=== PATIENT | female | born 1950 | race Caucasian/White ===

== ENCOUNTER → 2016-08-21 | Outpatient (CLI) | payer BC ==
[~2016-08-21] MED LIST: B-COTAB53 PO; CHOL100010 PO; DICL1GEL28 TOP; HYDR12.55 PO; MAGN500C PO; OMEG100046 PO; OYST500T47 PO; PRVC10 PO; TRAV0.00 OP
[2016-08-21 12:28] LABS: URINE APPEARANCE CLEAR (CLEAR); URINE BILIRUBIN NEG (NEG); URINE COLOR YELLOW; URINE NITRITE NEG (NEG); URINE PH 7.5 (4.5-7.5); UROBILINOGEN NEG (NEG)
[2016-08-21 12:29] LABS: MANUAL MICROSCOPIC REQUIRED? NO; REVIEW REQ? NO
[2016-08-21 12:35] LABS: ALT/SGPT 21 U/L (12-78); BLOOD UREA NITROGEN 14 mg/dl (7-18); CALCIUM 9.4 mg/dl (8.5-10.1); CARBON DIOXIDE 31 mmol/L (21-32); CHLORIDE 99 mmol/L (98-107); CHOLESTEROL 174 mg/dl (0-200); CREATININE 0.87 mg/dl (0.60-1.20); GLUCOSE 91 mg/dl (70-99); POTASSIUM 3.9 mmol/L (3.5-5.1); SODIUM 139 mmol/L (136-145)
[2016-08-21 12:38] LABS: ALB/GLOB RATIO 1.2 (0.9-2); ALKALINE PHOSPHATASE 63 U/L (45-117); AST/SGOT 17 U/L (15-37); CHOLESTEROL/HDL RATIO 2.4; HDL CHOLESTEROL 73 mg/dl; LDL CHOLESTEROL CALCULATED 82 mg/dl; TRIGLYCERIDES 96 mg/dl (0-150); VERY LOW DENSITY LIPOPROT CALC 19 mg/dl
== END | disposition home or self-care (01) ==
LOC: C.LABBFT 07:50
PROVIDERS: ATTEND Nurse Practitioner
DX: R31.29 Other microscopic hematuria (principal); E55.9 Vitamin D deficiency, unspecified; E78.5 Hyperlipidemia, unspecified

== ENCOUNTER → 2016-08-23 | Outpatient (CLI) | payer BC ==
--- NOTE | 2016-08-24 07:31 | MAMMOGRAPHY REPORT ---
BILATERAL DIGITAL SCREENING MAMMOGRAM TOMOSYNTHESIS WITH CAD: 08/23/2016 CLINICAL HISTORY: Routine screening. Patient has no complaints. TECHNIQUE: Breast tomosynthesis in addition to standard 2D mammography was performed. Current study was also evaluated with a Computer Aided Detection (CAD) system. COMPARISON: Comparison is made to exams dated: 03/07/2016 mammogram, 09/07/2015 aspiration, 08/31/2015 ultrasound, 08/31/2015 mammogram, 08/22/2015 mammogram, and 08/20/2014 mammogram - [facility]. BREAST COMPOSITION: There are scattered areas of fibroglandular density in both breasts. FINDINGS: No suspicious masses, calcifications, or areas of architectural distortion are noted in e ither breast. There has been no significant interval change compared to prior exams. Scattered bilat eral benign-appearing calcifications are not significantly changed. IMPRESSION: ACR BI-RADS CATEGORY 2: BENIGN There is no mammographic evidence of malignancy. A 1 year screening mammogram is recommended. The p atient will receive written notification of the results. Approximately 10% of breast cancers are not detected with mammography. A negative mammographic repor t should not delay biopsy if a clinically suggestive mass is present. Sloane Reis M.D. /:08/23/2016 13:43:57 Global Safety Officer: Sonja Hickman, [facility] letter sent: Normal 1/2 BI-RADS Code: ACR BI-RADS Category 2: Benign
== END | disposition home or self-care (01) ==
LOC: C.MAMM 09:06
PROVIDERS: ATTEND Nurse Practitioner
DX: Z12.31 Encounter for screening mammogram for malignant neoplasm of breast (principal)

== ENCOUNTER → 2016-09-13 | Outpatient (CLI) | payer BC | END | disposition home or self-care (01) | LOC: C.MAMM 14:15 | PROVIDERS: ATTEND Nurse Practitioner | DX: M85.851 Other specified disorders of bone density and structure, right thigh (principal); M85.852 Other specified disorders of bone density and structure, left thigh ==

== ENCOUNTER → 2016-10-24 | Outpatient (CLI) | payer BC ==
[2016-10-24 17:31] LABS: BLOOD UREA NITROGEN 22 mg/dl (7-18); CREATININE 0.94 mg/dl (0.60-1.20)
== END | disposition home or self-care (01) ==
LOC: C.LABBFT 15:13
PROVIDERS: ATTEND Nurse Practitioner
DX: R14.0 Abdominal distension (gaseous) (principal)

== ENCOUNTER → 2016-11-01 | Outpatient (CLI) | payer BC ==
--- NOTE | 2016-11-01 13:09 | DIAGNOSTIC IMAGING REPORT ---
ABDOMEN AND PELVIS CT WITH IV AND ORAL CONTRAST CT DOSE: 711.08 mGycm HISTORY: Left lower quadrant abdominal pain. TECHNIQUE: Multiaxial CT images of the abdomen and pelvis were performed following the use of intravenous and oral contrast. COMPARISON STUDY: Abdomen and pelvis CT 01/08/2014. FINDINGS: The lung bases are clear. Small hiatus hernia. The liver, spleen, adrenal glands, and kidneys are unremarkable. Bilateral extrarenal pelvises. No hydronephrosis. No retroperitoneal lymphadenopathy. Cholecystectomy. The uterus is surgically absent. Normal appendix. No bowel wall thickening or obstruction. IMPRESSION: 1. No bowel wall thickening or obstruction. 2. Normal appendix. 3. Cholecystectomy. 4. Small hiatus hernia. Electronically signed by: Evan Caceres M.D. 11/01/2016 1:07 PM Dictated Date/Time: 11/01/2016 1:00 PM
== END | disposition home or self-care (01) ==
LOC: C.CTS 12:13
PROVIDERS: ATTEND Nurse Practitioner
DX: R14.0 Abdominal distension (gaseous) (principal); K44.9 Diaphragmatic hernia without obstruction or gangrene

== ENCOUNTER → 2017-03-04 | Outpatient (CLI) | payer BC ==
[2017-03-04 12:23] LABS: ALT/SGPT 22 U/L (12-78); AST/SGOT 16 U/L (15-37); BLOOD UREA NITROGEN 13 mg/dl (7-18); BUN/CREATININE RATIO 14.9 (10-20); CALCIUM 9.6 mg/dl (8.5-10.1); CARBON DIOXIDE 29 mmol/L (21-32); CHLORIDE 101 mmol/L (98-107); CHOLESTEROL 205 mg/dl (0-200); CREATININE 0.86 mg/dl (0.60-1.20); GLUCOSE 90 mg/dl (70-99); POTASSIUM 4.1 mmol/L (3.5-5.1); SODIUM 137 mmol/L (136-145); TRIGLYCERIDES 207 mg/dl (0-150); VERY LOW DENSITY LIPOPROT CALC 41 mg/dl
[2017-03-04 12:33] LABS: ALB/GLOB RATIO 1.1 (0.9-2); ALKALINE PHOSPHATASE 70 U/L (45-117); CHOLESTEROL/HDL RATIO 3.6; HDL CHOLESTEROL 57 mg/dl; LDL CHOLESTEROL CALCULATED 107 mg/dl
== END | disposition home or self-care (01) ==
LOC: C.LABBFT 09:24
PROVIDERS: ATTEND Nurse Practitioner
DX: I10 Essential (primary) hypertension (principal); E66.3 Overweight; E78.5 Hyperlipidemia, unspecified

== ENCOUNTER → 2017-08-26 | Outpatient (CLI) | payer BC ==
--- NOTE | 2017-08-27 13:28 | MAMMOGRAPHY REPORT ---
BILATERAL DIGITAL SCREENING MAMMOGRAM TOMOSYNTHESIS WITH CAD: 08/26/2017 CLINICAL HISTORY: Routine screening. TECHNIQUE: Breast tomosynthesis in addition to standard 2D mammography was performed. Current study was also evaluated with a Computer Aided Detection (CAD) system. COMPARISON: Comparison is made to exams dated: 08/23/2016 mammogram, 08/31/2015 mammogram, 08/22/2015 jeanne mogram, 08/20/2014 mammogram, 08/19/2013 mammogram, and 08/18/2012 mammogram - [facility]. BREAST COMPOSITION: There are scattered areas of fibroglandular density in both breasts. FINDINGS: There is a newly visualized 4 mm focal asymmetry in the 12:00 middle one third of the righ t breast, for which additional spot compression tomosynthesis views and possible ultrasound are recom mended. There are a few scattered benign round and rim calcifications bilaterally. No other suspicious mass, architectural distortion or cluster of microcalcifications is seen. IMPRESSION: ACR BI-RADS CATEGORY 0: INCOMPLETE EVALUATION: NEED ADDITIONAL IMAGING EVALUATION The newly visualized 4 mm focal asymmetry in the right 12:00 breast needs additional evaluation. The patient will be called to schedule an appointment. Approximately 10% of breast cancers are not detected with mammography. A negative mammographic report should not delay biopsy if a clinically suggestive mass is present. Maryann Acevedo M.D. ay/:08/26/2017 16:32:59 Flume Tender: Imtiaz FLORES)(Tiffanie), [facility] letter sent: Addl Imaging 0 BI-RADS Code: ACR BI-RADS Category 0: Incomplete Evaluation: Need Additional Imaging Evaluation
== END | disposition home or self-care (01) ==
LOC: C.MAMM 09:58
PROVIDERS: ATTEND Nurse Practitioner
DX: Z12.31 Encounter for screening mammogram for malignant neoplasm of breast (principal); N64.89 Other specified disorders of breast

== ENCOUNTER → 2017-09-05 | Outpatient (CLI) | payer BC ==
--- NOTE | 2017-09-06 14:59 | MAMMOGRAPHY REPORT ---
UNILATERAL RIGHT DIGITAL DIAGNOSTIC MAMMOGRAM TOMOSYNTHESIS AND TARGETED RIGHT ULTRASOUND: 09/05/2017 CLINICAL HISTORY: Callback from screening mammogram for right breast asymmetry. TECHNIQUE: Breast tomosynthesis in addition to standard 2D mammography was performed. Spot compress ion right CC and MLO 2-D and tomosynthesis images and full right CC and MLO tomosynthesis images were obtained. COMPARISON: Comparison is made to exams dated: 08/26/2017 mammogram, 08/23/2016 mammogram, 03/07/2016 jeanne mogram, 09/07/2015 aspiration, 09/07/2015 mammogram, and 08/31/2015 ultrasound - [facility]. BREAST COMPOSITION: There are scattered areas of fibroglandular density in the right breast. FINDINGS: Spot compression views demonstrate a round low-density 4 mm mass within the right superior breast at approximately 12 to 12:30, only well-seen on the tomosynthesis images. Targeted ultrasound was performed of the right 12 to 1:00 breast in the region of the mammographic ma ss. In the right breast at 12:30, 6 cm from the nipple, there is a superficially located subdermal m ixed echogenicity mass which consists of hyperechoic tissue and a central isoechoic portion. The hira tral isoechoic portion measures 3 mm and the total extent of the finding measures 5 x 3 x 6 mm. This has the sonographic appearance of possible fat necrosis versus a normal fat lobule. On questioning, the patient denies any known trauma to the region. In the right breast at 12:00, 4 cm from the nipp le, there is an oval circumscribed anechoic mass with a thin internal septation which measures 3 x 2 mm consistent with a small cyst. A few other small cysts were seen during the exam, including an ane choic benign simple cyst measuring 3 mm in the right 1:00 periareolar breast. No suspicious solid ma sses were seen on ultrasound. A single BB was placed on the skin at the site of the 12:30 mass and a double BB was placed at the site of the right 12:00 breast mass, and repeat right CC and MLO views we re obtained. Neither BBs clearly align with the mammographic finding. However, the mammographic fin ding has benign mammographic features and is probably benign and likely represents a small cyst. IMPRESSION: ACR-BI-RADS CATEGORY 3: PROBABLY BENIGN, TARGETED ULTRASOUND ACR-BI-RADS CATEGORY 3: PRO BABLY BENIGN Persistent small 4 mm benign-appearing mammographic mass within the right 12 to 12:30 breast, without a clear sonographic correlate evident. A benign 3 mm cyst is seen within the right 12:00 breast on ultrasound, and a superficial mixed echogenicity 6 mm mass is seen within the right 12 to 12:30 breas t on ultrasound which is probably benign and may represent a normal fat lobule versus fat necrosis; t hese findings do not clearly correspond with the mammographic mass. Overall findings are probably be nign and recommend follow-up diagnostic tomosynthesis mammograms and ultrasound of the right breast i n 3 months to reevaluate the mammographic and sonographic findings. The patient has been verbally notified of the results. Approximately 10% of breast cancers are not detected with mammography. A negative mammographic report should not delay biopsy if a clinically suggestive mass is present. Sloane Reis M.D. ah/:09/05/2017 15:38:39 Pump Servicer Helper: Sonja Hickman, [facility] letter sent: Follow Up Recommended 3 BI-RADS Code: ACR-BI-RADS Category 3: Probably Benign Ultrasound BI-RADS: ACR-BI-RADS Category 3: Pr obably Benign
== END | disposition home or self-care (01) ==
LOC: C.MAMM 13:28
PROVIDERS: ATTEND Nurse Practitioner
DX: N63.10 Unspecified lump in the right breast, unspecified quadrant (principal); N60.01 Solitary cyst of right breast

== ENCOUNTER → 2017-09-11 | Outpatient (CLI) | payer BC ==
[2017-09-11 12:54] LABS: HEMATOCRIT 43.6 % (37-47); HEMOGLOBIN 14.8 g/dL (12.0-16.0); MEAN CELL VOLUME 85.8 fL (80-100); MEAN CORPUSCULAR HEMOGLOBIN 29.1 pg (25-34); MEAN CORPUSCULAR HGB CONC 33.9 g/dl (32-36); MEAN PLATELET VOLUME 9.4 fL (7.4-10.4); PLATELET COUNT 324 K/uL (130-400); WHITE BLOOD COUNT 5.92 K/uL (4.8-10.8)
[2017-09-11 13:25] LABS: ALBUMIN 4.2 gm/dl (3.4-5.0); ALT/SGPT 19 U/L (12-78); BLOOD UREA NITROGEN 17 mg/dl (7-18); CALCIUM 9.4 mg/dl (8.5-10.1); CARBON DIOXIDE 29 mmol/L (21-32); CREATININE 0.86 mg/dl (0.60-1.20); GLUCOSE 91 mg/dl (70-99); POTASSIUM 3.7 mmol/L (3.5-5.1); SODIUM 136 mmol/L (136-145)
[2017-09-11 13:28] LABS: ALKALINE PHOSPHATASE 63 U/L (45-117); AST/SGOT 14 U/L (15-37); CHOLESTEROL 189 mg/dl (0-200); LDL CHOLESTEROL CALCULATED 104 mg/dl; TOTAL PROTEIN 7.5 gm/dl (6.4-8.2)
== END | disposition home or self-care (01) ==
LOC: C.LABBFT 07:55
PROVIDERS: ATTEND Nurse Practitioner
DX: E78.5 Hyperlipidemia, unspecified (principal); E55.9 Vitamin D deficiency, unspecified; I10 Essential (primary) hypertension

== ENCOUNTER 2018-12-26 05:04 | Inpatient (IN) ==
--- NOTE | 2018-11-18 16:22 | PAT Medication Instructions ---
Medication Instructions Date of Service November 18, 2018 Home Medications ascorbic acid (vitamin C) [Vitamin 500 mg PO QAM bimatoprost [Lumigan] 1 drp OPB PM brimonidine [Alphagan P] 1 drp OPR BIDM cholecalciferol (vitamin D3) 1,000 unit PO QPM cyclosporine [Restasis] 1 drp OPHTHALMIC (EYE) Q12H diclofenac sodium [Voltaren] 4 g TOPICAL QID PRN magnesium 250 mg PO QAM omega 8-qwj-lsw-fish oil [Fish Oil] 1 cap PO QAM pravastatin 10 mg PO QAM valsartan-hydrochlorothiazide 1 tab PO QAM STOP taking 2 weeks before surgery (or as soon as possible if surgery is within 2 weeks) omega 3-txs-stu-fish oil [Fish Oil] 1 cap PO QAM STOP taking 24 hours before surgery diclofenac sodium [Voltaren] 4 g TOPICAL QID PRN DO NOT take the morning of surgery ascorbic acid (vitamin C) [Vitamin 500 mg PO QAM magnesium 250 mg PO QAM valsartan-hydrochlorothiazide 1 tab PO QAM Take morning of surgery With a small sip of water, OTHERWISE NOTHING TO EAT OR DRINK AFTER MIDNIGHT: brimonidine [Alphagan P] 1 drp OPR BIDM cyclosporine [Restasis] 1 drp OPHTHALMIC (EYE) Q12H pravastatin 10 mg PO QAM Take evening before surgery bimatoprost [Lumigan] 1 drp OPB PM brimonidine [Alphagan P] 1 drp OPR BIDM cholecalciferol (vitamin D3) 1,000 unit PO QPM cyclosporine [Restasis] 1 drp OPHTHALMIC (EYE) Q12H Other Notes If you have any questions please call us at [phone] or [phone] or [phone] or [phone]
--- NOTE | 2018-11-19 10:58 | Anesthesiology Consultation ---
Date of Service November 19, 2018 Assessment & Plan (1) Encounter for pre-operative examination: Chart Review Chart Review: Acceptable Risk for Surgery and Patient seen in Pre Admission Testing Consults Requested none Teaching & Discussion Pre-Anesthesia Teaching/Discussion Notes: Instructed NPO after midnight before surgery, except medications with 15 cc of water. Medication instructions provided according to the PAT guidelines. History Surgery Operation Date: 12/26/18 07:00 Proposed Procedures p Right Total Knee Arthroplasty - Tonio Dockery MD Height/Weight Height: 5 ft 1 in Weight: 67.4 kg Allergies Allergy/AdvReac Type Severity Reaction Status Date / Time tramadol Allergy NAUSEA AND Verified 11/13/18 10:39 VOMITING atenolol AdvReac Unknown NERVOUSNESS, Verified 11/13/18 10:39 JITTERY codeine AdvReac Unknown N/V AND Verified 11/13/18 10:39 DIZZINESS Medications Home Medications Medication Instructions Recorded Confirmed Last Taken ascorbic acid (vitamin C) [Vitamin 500 mg PO QAM 11/13/18 11/13/18 Unknown C] bimatoprost [Lumigan] 1 drp OPB PM 11/13/18 11/13/18 Unknown brimonidine [Alphagan P] 1 drp OPR BIDM 11/13/18 11/13/18 Unknown cholecalciferol (vitamin D3) 1,000 unit PO QPM 11/13/18 11/13/18 Unknown [Vitamin D3] cyclosporine [Restasis] 1 drp OPHTHALMIC (EYE) Q12H 11/13/18 11/13/18 Unknown diclofenac sodium [Voltaren] 4 g TOPICAL QID PRN 11/13/18 11/13/18 Unknown magnesium 250 mg PO QAM 11/13/18 11/13/18 Unknown omega 8-wcw-hxj-fish oil [Fish Oil] 1 cap PO QAM 11/13/18 11/13/18 Unknown pravastatin 10 mg PO QAM 11/13/18 11/13/18 Unknown valsartan-hydrochlorothiazide 1 tab PO QAM 11/13/18 11/13/18 Unknown Past Medical History Medical History Hyperlipidemia Hypertension Mitral valve disorder h/o mitral valve regurgitation - improved Ocular hypertension, bilateral RIGHT EYE WORSE Osteoarthritis Osteopenia Exercise / Class Metabolic Activity II 4-5 Yardwork/Stairs/Walk up hill (Strength training 3 days per week. Usually very active. Able to climb FOS, although becoming more difficult with FOS. Denies CP or SOB. ) Past Family History Family History Father Family history of diabetes mellitus Grandmother (Maternal) Family history of diabetes mellitus Past Surgical History Surgical History History of partial hysterectomy UTERUS AND OVARY Hx of bilateral cataract extraction SINCE SURGERY HAS MACULAR WRINKLE LEFT EYE Hx of section Hx of cholecystectomy Hx of hysterectomy TOTAL 3 MO AFTER PARTIAL Past Anesthesia History No Hx of Anesthesia Complications and No Family Hx of Anesthesia Complications History of PONV Adult History of PONV (18 and older): No family history of PONV. No Hx of PONV and Hx of Motion Sickness Social History Smoking Status: Never smoker Do You Dip or Chew Tobacco: No Hx Alcohol Use: No Hx Substance Use: No Review of Systems Patient denies chest pain, shortness of breath, dyspnea on exertion, reflux, cough, wheezing, palpitations. +Joint Pain (Right Knee, Low Back, Right Hip, right thumb) Physical Exam Vital Signs BP: 138/81 P: 70 R: 18 T: 97.9 SPO2: 98% on RA ENMT Thyromental Distance: < 3.5 Finger Breadths (3) Mallampati Class: II Neck normal visual inspection; neck extension not limited Respiratory normal respiratory effort Auscultation: lungs clear to auscultation bilaterally Cardiovascular Rate/Rhythm: regular rate and regular rhythm Heart Sounds: no murmur Vessels: no carotid bruit Neurologic moves all extremities Psychiatric Orientation: alert and oriented x 3 Testing Electrocardiogram Date: 11/19/18 Findings: + NSR @ (62) and + no change from (01/25/03) Chest X-Ray Date: 11/19/18 Findings: + NAD FINDINGS: PA and lateral chest radiographs are obtained. No prior studies are available for comparison at the time of dictation. The cardiomediastinal silhouette is unremarkable. The lungs and pleural spaces are clear. There is no pneumothorax. The bony thorax appears intact. Cholecystectomy clips are seen in the right upper quadrant. IMPRESSION: No active disease in the chest. Echocardiogram Date: 04/04/18 EF: >70% RWMA: + none Other Findings: + diastolic dysfunction (Type I); no LVH Valvular Disease: + no significant valvular disease Normal left ventricular size with hyperdynamic systolic function. Compared to prior study on 09/02/13, mitral regurgitation now appears trace. Laboratory Results 11/19/18 11:19 11/19/18: Blood Type O Positive 11/19/18: Antibody Screen NEGATIVE 11/19/18: PT 10.3 Seconds (9.0-12.0) 11/19/18: INR 1.0 (0.9-1.1) 11/19/18: APTT 28.5 Seconds (21.0-31.0) 11/19/18:
[2018-11-19 11:39] LABS: Basophils # (auto) 0.02 K/uL (0-0.2); Basophils % (auto) 0.3 %; Eosinophils # (auto) 0.04 K/uL (0-0.5); Eosinophils % (auto) 0.6 %; Hematocrit (blood only) 43.6 % (37-47); Hemoglobin 15.5 g/dL (12.0-16.0); Immature Granulocytes # (auto) 0.02 K/uL (0.00-0.02); Immature Granulocytes % (auto) 0.3 %; Lymphocytes # (auto) 2.79 K/uL (1.2-3.4); Lymphocytes % (auto) 38.6 %; Mean Corpuscular Hgb Conc 35.6 g/dL (32-36); Mean Corpuscular Volume 85.5 fL (80-100); Mean Platelet Volume 8.7 fL (7.4-10.4); Monocytes # (auto) 0.68 K/uL (0.11-0.59); Monocytes % (auto) 9.4 %; Neutrophils # (auto) 3.67 K/uL (1.4-6.5); Neutrophils % (auto) 50.8 %; Platelet Count 346 K/uL (130-400); RDW Coefficient of Variation 12.4 % (11.5-14.5); RDW Standard Deviation 38.8 fL (36.4-46.3); White Blood Count 7.22 K/uL (4.8-10.8)
[2018-11-19 12:09] LABS: Partial Thromboplastin Ratio 1.1; Partial Thromboplastin Time 28.5 Seconds (21.0-31.0); Prothrombin Time 10.3 Seconds (9.0-12.0)
--- NOTE | 2018-11-19 12:29 | XRay Report ---
TWO VIEW CHEST CLINICAL HISTORY: Preoperative examination. FINDINGS: PA and lateral chest radiographs are obtained. No prior studies are available for compariso n at the time of dictation. The cardiomediastinal silhouette is unremarkable. The lungs and pleural spaces are clear. There is no pneumothorax. The bony thorax appears intact. Cholecystectomy clips ar e seen in the right upper quadrant. IMPRESSION: No active disease in the chest. Electronically signed by: Warren Chawla M.D. 11/19/2018 12:27 PM
[2018-11-19 14:15] LABS: BUN Creatinine Ratio 19.1 (10-20); Calcium 10.1 mg/dl (8.5-10.1); Creatinine Clr Calc Pharmacy 49.4 ml/min; Est GFR (African American) 72.2; Est GFR (Non-African American) 62.3; Potassium 4.6 mmol/L (3.5-5.1)
--- NOTE | 2018-12-19 08:12 | History and Physical Report ---
DATE OF ADMISSION: 12/26/2018 CHIEF COMPLAINT: Right knee pain. HISTORY OF PRESENT ILLNESS: This is a 68-year-old female from [place], who presents for surgical treatment of her right knee. She has several-year history of increasing right knee pain and discomfort. She describes it has gotten worse over time. She has been treated by Dr. Negro in the past with a course of therapy as well as multiple injections as well as topical Voltaren gel. This became less successful over time. She has global pain in the knee. The more she walks, the more it hurts. It swells up. It makes noises. She has increased pain going up and down steps. She would like to proceed with surgical treatment. PAST MEDICAL HISTORY: 1. Mitral valve prolapse. 2. Lumbar spondylosis/sciatica. PAST SURGICAL HISTORY: Previous surgeries include: 1. Cataract surgery. 2. Hysterectomy. 3. . ALLERGIES: ATENOLOL, LISINOPRIL, CODEINE, TRAMADOL, WHICH CAUSES NAUSEA. CURRENT MEDICINES: Include: 1. Pravastatin 10 mg. 2. Vitamin B complex. 3. [place]-3. 4. Vitamin D. 5. Diclofenac topical gel 4 times a day. 6. Magnesium 250 mg a day 7. Valsartan/hydrochlorothiazide 80/12.5 mg once a day. 8. Alphagan ophthalmic drops. 9. Lumigan ophthalmic drops. 10. Restasis ophthalmic drops. SOCIAL HISTORY: A 68-year-old female. She is from [place]. She is . FAMILY HISTORY: Noncontributory. REVIEW OF HISTORY: Negative for diabetes, neurologic problems, vascular problems or bleeding disorders. No chest pain or shortness of breath. No history of DVT or PE. No known bleeding problems. PHYSICAL EXAMINATION: GENERAL: Reveals a pleasant, middle-aged female. Looks a little younger than her stated age. HEENT: Benign. NECK: Supple. No lymphadenopathy. LUNGS: Clear to auscultation. HEART: Has a regular rate and rhythm. ABDOMEN: Soft, nontender, nondistended. EXTREMITIES: Grossly neurovascularly intact except as follows: Examination of the right knee reveals the patient walks with a slight bit of a limp. She has got valgus alignment to her knee. Her valgus deformity is increased with weightbearing. Moderate soft tissue envelope. Small knee effusion. Range of motion is 5-10 degrees, short of full extension to 120 degrees of flexion. There is no instability. No pain with hip motion. X-RAYS: X-rays of the right knee reviewed. Shows advanced lateral compartment DJD. She has complete loss of her lateral joint space on the 40-degree flexion films. She has osteophytes of the lateral femoral condyle and lateral tibial plateau. Mild patellofemoral arthritis. ASSESSMENT: A 68-year-old female with a several-year history of increasing right knee pain, discomfort, unresponsive to conservative care. She would like to proceed with knee replacement. PLAN: We are going to take her to the operating room and do a right total knee replacement. The risks and benefits of this procedure were explained to the patient including but not limited to DVT, PE, , infection, neurological injury, vascular injury, bleeding problem, pain, limited range of motion, stiffness, failure to relieve her symptoms, incomplete relief of symptoms, need for further surgery in future, fracture, leg length inequality, nerve palsy, etc. The patient understands and desires to proceed. Informed consent was obtained. Pain control may be a little bit of an issue as she gets a lot of nausea with codeine and tramadol. She says she has done okay with morphine in the past. We will likely use Dilaudid in the perioperative period and some Zofran as needed. As far as discharge plans, she is planning to be discharged home using [facility] home health program.
[2018-12-26] MEDS ORDERED: GABAPENTIN 300 MG PO SCH (06:00)
[2018-12-26] MEDS ORDERED: METOCLOPRAMIDE HCL 10 MG TABLET PO SCH (06:00)
[2018-12-26] MEDS ORDERED: CEFAZOLIN 2000MG 2,000 MG/15 ML SYR IV SCH (06:00)
[2018-12-26] MEDS ORDERED: FAMOTIDINE 20 MG TAB PO SCH (06:00)
[2018-12-26] MEDS ORDERED: ROPIVACAINE 0.5% HCL/PF 150 MG, BUPIVACAINE 0.5% MPF 30 ML, EPINEPHrine 30MG/30ML (OR U... INFIL SCH (06:00)
[2018-12-26] MEDS ORDERED: ACETAMINOPHEN 500 MG TAB PO SCH (06:00)
[2018-12-26] MEDS ORDERED: LR 500ML BOLUS, THEN 15ML/HR IV SCH (06:00)
[2018-12-26] MEDS ORDERED: BUPIVACAINE LIPOSOME/PF 266 MG, BUPIVACAINE/EPINEPHRINE 50 ML, SODIUM CHLORIDE 0.9% 30 ... INFIL SCH (06:00)
[2018-12-26] MEDS ORDERED: LR 60ML/HR IV SCH (06:00)
[2018-12-26] MEDS ORDERED: MIDAZOLAM HCL 1 MG/ML 2ML VIAL ONE (06:27)
[2018-12-26] MEDS ORDERED: fentaNYL citrate 100 MCG/2 ML VIAL ONE (06:27)
[2018-12-26] MEDS ORDERED: TRANEXAMIC ACID 1,000 MG **IV Intra-op IV SCH (06:30)
[2018-12-26] MEDS ORDERED: EPINEPHrine INJ 1 MG/ML AMP ONE ×2 (06:32→06:43)
[2018-12-26] MEDS ORDERED: ROPIVACAINE 0.5% 5 MG/ML 30 ML VIAL ONE (06:32)
[2018-12-26] MEDS ORDERED: BUPIVACAINE 0.5 % 5 MG/1 ML PF 10ML VIAL ONE (06:32)
[2018-12-26] MEDS ORDERED: SODIUM CHLORIDE 0.9% PF 50 ML VIAL ONE (06:42)
[2018-12-26] MEDS ORDERED: BUPIVACAINE LIPOSOME 1.3% 266 MG/20 ML VIAL ONE (06:42)
[2018-12-26] MEDS ORDERED: BACITRACIN INJ 50,000 UNIT VIAL ONE (06:43)
[2018-12-26] MEDS ORDERED: BUPIVACAINE 0.25% 30 ML VIAL ONE (06:43)
--- NOTE | 2018-12-26 06:47 | History & Physical Bridge Note ---
Date of Service December 26, 2018 History & Physical Bridge Note I have examined the patient, reviewed the History & Physical and in the interval since the performance of the History & Physical I have noted the following changes of clinical significance: no changes noted
[2018-12-26] MEDS ORDERED: ePHEDrine sulfate 50 MG/ML AMP IV PRN (07:05)
[2018-12-26] MEDS ORDERED: ATROPINE SULFATE 0.1 MG/ML 10ML SYR IV PRN (07:05)
--- NOTE | 2018-12-26 08:27 | Post Operative Brief Note ---
Immediate Post Op Note v1 Date of Surgery December 26, 2018 Pre & Post Diagnosis Operation Date: 12/26/18 07:00 Pre-Op Diagnosis: Degenerative Joint Disease Right Knee Post-Op Diagnosis: Degenerative Joint Disease Right Knee Procedure Operation Date: 12/26/18 07:00 Actual Procedures p Right Total Knee Arthroplasty(Right) - Tonio Dockery MD Surgeon Tonio Dockery MD Dry Kiln Feeder Filippo, PAC Estimated Blood Loss 50 Findings Consistent with Post-Op Diagnosis Fluids 400 cc Specimens Right Knee Anesthesia Type Spinal MAC Complications none Disposition Accompanied Patient To Recovery: No Disposition: Recovery Room
--- NOTE | 2018-12-26 09:16 | Anesthesiology Progress Note ---
Date of Service December 26, 2018 Anesthesia Post Procedure Vital Signs Vital Signs: Temp Pulse Pulse Resp BP BP Pulse Ox 12/26/18 09:10 37 C 58 L 13 118/57 L 93 12/26/18 09:00 59 L 12 121/56 L 93 12/26/18 08:50 60 12 114/61 93 12/26/18 08:40 74 16 129/57 L 94 12/26/18 08:33 36.7 C 65 14 135/56 L 98 12/26/18 05:39 36.4 C L 63 18 162/74 H 99 Transfer of Care Handoff Completed per policy Notes Mental Status: alert / awake / arousable Patient Amnestic to Procedure: Yes Nausea / Vomiting: adequately controlled Pain: adequately controlled Airway Patency, RR, SpO2: stable & adequate BP & HR: stable & adequate Hydration State: stable & adequate Neuraxial Anesthesia: was administered and sensory block is resolving Anesthetic Complications: no major complications apparent and Pt Satisfied with anesthetic care
--- NOTE | 2018-12-26 09:22 | XRay Report ---
RIGHT KNEE 2 VIEWS History: Right total knee arthroplasty. Degenerative arthritis. Postop. FINDINGS: The patient is status post a right total knee arthroplasty. The hardware is intact. No frac ture or dislocation. Skin yassine are in place. IMPRESSION: Right total knee arthroplasty. No evidence for hardware complication. Electronically signed by: Evan Caceres M.D. 12/26/2018 9:21 AM
--- NOTE | 2018-12-26 09:33 | Operative Report ---
DATE OF OPERATION: 12/26/2018 SURGEON: Tonio Dockery MD BASE MANAGER: CASI Wesley PREOPERATIVE DIAGNOSIS: Right knee degenerative joint disease. POSTOPERATIVE DIAGNOSIS: Same. PROCEDURE PERFORMED: Right cemented posterior stabilized total knee arthroplasty. COMPLICATIONS: None. ESTIMATED BLOOD LOSS: 50 mL. FLUID REPLACEMENT: 400 mL crystalloid fluid replacement. ANESTHESIA: Spinal with adductor canal block. DRAINS: None. SPECIMENS: Right knee sent for pathology. OPERATIVE INDICATIONS: The patient is a 68-year-old female who has had a fairly long history of right knee pain and discomfort, treated elsewhere with extensive conservative treatment including oral medicines as well as topical medicines and injections. This became less successful over time. X-rays showed advanced lateral compartment DJD. She failed conservative treatment and elected to proceed with operative intervention. OPERATIVE FINDINGS: Operative findings revealed advanced right knee lateral compartment DJD. She had fairly extensive grade 4 changes laterally. She had some focal grade 4 changes in the patellofemoral joint as well as the medial compartment. She had a valgus deformity to her knee. OPERATIVE IMPLANTS: Operative implants consisted of: 1. Biomet Vanguard size 60 right posterior stabilized femoral component. 2. Biomet size 63 tibial tray. 3. A 10 mm posterior stabilized polyethylene insert. 4. A 25 x 8 all poly patella. DESCRIPTION OF PROCEDURE: The patient was taken to the operating room, identified, and placed on the operative table in supine position. All contact areas were appropriately padded. IV antibiotics were provided by anesthesia team. Spinal anesthetic and adductor canal block had been provided in the holding area. Gan catheter was placed in sterile fashion. Right thigh tourniquet was then placed, and the right lower extremity was then prepped and draped in usual sterile fashion. The right leg was elevated and exsanguinated with Esmarch, and tourniquet was placed at 300 mmHg. An anterior approach of the right knee was then performed through a longitudinal incision centered over the patella. Sharp dissection was carried through the subcutaneous tissues down to the level of the extensor mechanism. A medial parapatellar arthrotomy incision was made. Some subperiosteal dissection was carried out medially. The fat pad was resected from beneath the patellar tendon. The lateral patellofemoral ligament was released. The patella was everted, and knee was flexed. The osteophytes were taken off the distal femur. The ACL and PCL were released from the distal femur, and the tibia subluxated anteriorly. The external tibial alignment jig was then placed in the anterior face of the tibia and adjusted 14 mm medially. Proximal tibial cut was made to remove about 2-3 mm of bone from the medial side. Tibia was then sized to a size 63. Attention was then drawn to the femur. The distal femur was entered with a sharp drill bit. Intramedullary canal was suctioned. A right 5 degree valgus cutting guide was placed. Distal femoral cutting block was pinned in place. Distal femoral cut was made to take an additional 3 mm of bone off the distal femur. The femur was then sized to a size 60. The AP cutting block was pinned parallel to the epicondylar axis, which was 5 degrees of external rotation. The anterior cut, anterior chamfer cut, posterior cut, posterior chamfer cuts were made. Box cutting guide was placed and adjusted slightly lateral, and box cut was made. The knee was flexed. The remnants of the medial and lateral menisci were excised. The osteophytes were taken off the posterior aspect of the femur. A trial femoral component was placed. Tibial tray was pinned in maximum external rotation, and drill and stem punch were used to create defect in proximal tibia for the tibial tray. The knee was then trialed. Of note, I did do a little bit of release of the IT band with the knee in extension, equalized the extension gap, and did release the popliteus to equalize the flexion gap. A trial femoral implant was placed. The tibial tray was pinned in maximum external rotation, and drill and stem punch were used to create defect in proximal tibia for the tibial tray. The knee was then trialed, and the 10 mm insert fit most appropriately. Attention was then drawn to the patella. The patella was cleaned of all soft tissues. Patella thickness measured 18 mm in thickness, was cut down to 12. It was sized to a size 25 patella. Lug holes were drilled for a 25 patella. Lateral osteophyte was removed. Patella button was placed. Knee was taken through range of motion, patella tracked nicely with no thumbs test. Attention was then drawn toward placement of the permanent components. All trial components were removed. Bone plug was placed in distal femur to limit blood loss. A double batch of Palacos G cement was mixed. A Biomet Vanguard size 60 right posterior stabilized femoral component, size 63 tibial tray, a 10 mm posterior stabilized polyethylene insert, and a 25 x 8 all poly patella were then cemented in place. Knee was brought into full extension until cement hardened. A final cement check was then performed. Pericapsular tissues were injected with a total of 100 mL of a combination of 20 mL of Exparel, 30 mL of normal saline, 50 mL of 0.25% Marcaine with epinephrine. The patient did receive 1 gram of tranexamic acid. The tourniquet was then let down for a final tourniquet time of 49 minutes. Hemostasis was assured with use of electrocautery. The wound was once again irrigated. The extensor mechanism was then closed with a combination of #1 PDS suture and #1 Vicryl suture in a [id number] fashion. Extensor mechanism was checked and found to be intact. The subcutaneous tissue was then closed with 2 Dexon suture in a buried interrupted fashion. Skin was closed with skin yassine. Leg was then cleaned, dried, and a sterile dressing of Xeroform, 4 x 4, sterile cast padding, and Lucho bandage were applied. The patient was then transferred to the recovery room in stable condition. The patient tolerated the procedure well with no complications. All needle and sponge counts were correct at the end of the operation. I attest to the content of the Intraoperative Record and any orders documented therein. Any exception s are noted below.
[2018-12-26] MEDS ORDERED: MAGNESIUM HYDROXIDE SUSP 30 ML UDC PO PRN (09:40)
[2018-12-26] MEDS ORDERED: METOCLOPRAMIDE HCL INJ 5 MG/ML 2 ML VIAL IV PRN (09:40)
[2018-12-26] MEDS ORDERED: ALUMINUM/MAGNESIUM SUSP 30 ML UDC PO PRN (09:40)
[2018-12-26] MEDS ORDERED: ASCORBIC ACID 500 MG TAB PO SCH (09:40)
[2018-12-26] MEDS ORDERED: HYDROmorphone INJ 0.5 MG/0.5 ML SYR IV PRN (09:40)
[2018-12-26] MEDS ORDERED: HYDROmorphone HCL 2 MG TAB PO PRN (09:40)
[2018-12-26] MEDS ORDERED: BISACODYL 10 MG SUPP PR PRN (09:40)
[2018-12-26] MEDS ORDERED: VALSARTAN/HCTZ 80/12.5MG TAB PO SCH (09:40)
[2018-12-26] MEDS ORDERED: NALOXONE HCL 0.4 MG/1 ML VIAL/CARP IV PRN (09:40)
[2018-12-26] MEDS: SODIUM CHLORIDE 0.9% 1000ML 1,000 ML IV SCH ×2 (11:04→20:47)
[2018-12-26] MEDS: OMEGA-3 (PURIFIED FISH OIL) 1 GM CAP PO SCH (11:05)
[2018-12-26] MEDS: MULTIVITAMIN TAB PO SCH (11:05)
[2018-12-26] MEDS: TAPENTADOL HCL ER 50 MG TABCR PO SCH ×2 (11:05→20:43)
[2018-12-26] MEDS: ONDANSETRON INJ 2 MG/ML 2 ML VIAL IV PRN ×2 (11:09→19:38)
[2018-12-26] MEDS: KETOROLAC TROMETHAMINE 15 MG/ML VIAL IV SCH ×3 (12:29→23:21)
[2018-12-26] MEDS: VALSARTAN 80 MG TAB PO SCH (13:13)
[2018-12-26] MEDS: DOCUSATE SODIUM 100 MG CAP PO SCH ×2 (13:13→20:28)
[2018-12-26] MEDS: PRAVASTATIN SOD 10 MG TAB PO SCH ×2 (13:13→13:15)
[2018-12-26] MEDS: hydroCHLOROthiazide 25 MG TAB PO SCH (13:13)
[2018-12-26] MEDS: MAGNESIUM OXIDE 400 MG TAB PO SCH (13:19)
--- NOTE | 2018-12-26 13:49 | Progress Note ---
DATE: 12/26/2018 SUBJECTIVE: A 68-year-old white female postop from a right knee replacement. She is doing well. Not having any pain yet. No chest pain or shortness of breath. Not feeling dizzy or lightheaded. No nausea. OBJECTIVE: VITAL SIGNS: Temperature 36.4. Vital signs stable. GENERAL: Physical examination shows a pleasant, middle-aged female. She is sitting up in bed and looks quite comfortable. She is reading a book. LUNGS: Clear to auscultation. HEART: Regular rate and rhythm. ABDOMEN: Soft, nontender, nondistended. EXTREMITIES: Grossly neurovascularly intact except as follows: Examination of the right leg reveals the leg to be well aligned. Dressing is clean, dry and intact. She can dorsiflex and plantarflex her foot appropriately. She has got brisk refill. Good distal pulse. IMAGING: X-rays of the right knee from recovery room reviewed. It shows a right cemented posterior stabilized total knee arthroplasty. Components looked to be in good position. No signs of problems. ASSESSMENT: A 68-year-old white female postop from a right knee replacement, doing well. Pain is controlled. She is neurologically intact. PLAN: 1. DVT prophylaxis including thigh-high TEDs, SCDs, and aspirin twice a day. 2. PT/OT. Weight bear as tolerated. Right total knee protocol. 3. Pain control, doing well with current pain regimen. 4. IV antibiotics x24 hours. 5. Disposition: Plan to discharge to home with some home health once adequately recovered.
[2018-12-26] MEDS: ACETAMINOPHEN 500 MG TAB PO SCH ×2 (14:06→22:07)
[2018-12-26] MEDS: CEFAZOLIN 1000MG 1,000 MG/7.5 ML SYR IV SCH ×2 (14:06→22:19)
[2018-12-26] MEDS: ASPIRIN 81 MG ECTAB PO SCH ×2 (14:19→20:28)
[2018-12-26] MEDS ORDERED: TRANEXAMIC ACID 1,000 MG in 0.9 % SODIUM CHLORIDE 100 ML IV SCH (14:28)
[2018-12-26] MEDS: BRIMONIDINE TARTRATE (ALPHAGAN P) 5 ML DROPS OPR SCH (16:53)
[2018-12-26] MEDS: cycloSPORINE (RESTASIS) OP SCH (17:06)
[2018-12-26] MEDS: ASCORBIC ACID 500 MG TAB PO SCH (17:50)
[2018-12-26] MEDS: FERROUS GLUCONATE 324 MG TAB PO SCH (17:50)
[2018-12-26] MEDS: BIMATOPROST 0.01% OP SOLN 2.5 ML BTL OPB SCH (20:34)
[2018-12-26] MEDS: SENNA 8.6 MG TAB PO SCH (20:35)
[2018-12-26] MEDS: CHOLECALCIFEROL 1,000 UNITS TAB PO SCH (20:35)
[2018-12-27] MEDS: ACETAMINOPHEN 500 MG TAB PO SCH ×3 (06:06→22:19)
[2018-12-27] MEDS: KETOROLAC TROMETHAMINE 15 MG/ML VIAL IV SCH ×4 (06:07→23:46)
[2018-12-27 06:12] LABS: Hematocrit (blood only) 32.2 % (37-47); Hemoglobin 11.2 g/dL (12.0-16.0); Mean Corpuscular Hgb Conc 34.8 g/dL (32-36); Mean Platelet Volume 8.9 fL (7.4-10.4); Platelet Count 226 K/uL (130-400); RDW Coefficient of Variation 12.2 % (11.5-14.5); Red Blood Count 3.79 M/uL (4.2-5.4)
[2018-12-27] MEDS: ONDANSETRON INJ 2 MG/ML 2 ML VIAL IV PRN ×2 (06:51→22:19)
[2018-12-27 07:10] LABS: BUN Creatinine Ratio 15.8 (10-20); Calcium 8.7 mg/dl (8.5-10.1); Creatinine Clr Calc Pharmacy 48.4 ml/min; Est GFR (African American) 72.2; Est GFR (Non-African American) 62.3; Potassium 4.5 mmol/L (3.5-5.1)
--- NOTE | 2018-12-27 08:34 | Progress Note ---
DATE: 12/27/2018 SUBJECTIVE: A 68-year-old white female postop day 1 from right knee replacement. She is doing well. Rates her most severe pain this morning as a 3. Denies any chest pain or shortness of breath. Not feeling dizzy or lightheaded. OBJECTIVE: VITAL SIGNS: Temperature 37.1. Vital signs stable. GENERAL: Physical examination shows a pleasant, middle-aged female. Lying in bed, looks pretty comfortable. EXTREMITIES: Examination of the right leg reveals it to be well aligned. Dressing is clean, dry and intact. She can dorsiflex and plantarflex her foot appropriately. She is neurologically intact. LABORATORY DATA: Hemoglobin 11.2. Hematocrit 32.2. Electrolytes are stable. ASSESSMENT: A 68-year-old white female postop day 1 from right knee replacement, doing pretty well. Pain is controlled. She is neurologically intact. PLAN: 1. DVT prophylaxis including thigh-high TEDs, SCDs, and aspirin twice a day. 2. PT/OT. Weight bear as tolerated. Right total knee protocol. 3. Pain control, doing pretty well with current pain regimen. 4. Disposition: She is planning to be discharged to home and do some outpatient therapy once adequately recovered.
[2018-12-27] MEDS: cycloSPORINE (RESTASIS) OP SCH ×2 (09:22→17:47)
[2018-12-27] MEDS: BRIMONIDINE TARTRATE (ALPHAGAN P) 5 ML DROPS OPR SCH ×2 (09:23→17:47)
[2018-12-27] MEDS: OMEGA-3 (PURIFIED FISH OIL) 1 GM CAP PO SCH (09:26)
[2018-12-27] MEDS: PRAVASTATIN SOD 10 MG TAB PO SCH (09:26)
[2018-12-27] MEDS: MULTIVITAMIN TAB PO SCH (09:28)
[2018-12-27] MEDS: hydroCHLOROthiazide 25 MG TAB PO SCH (09:30)
[2018-12-27] MEDS: ASPIRIN 81 MG ECTAB PO SCH ×2 (09:30→22:20)
[2018-12-27] MEDS: DOCUSATE SODIUM 100 MG CAP PO SCH ×2 (09:31→22:19)
[2018-12-27] MEDS: VALSARTAN 80 MG TAB PO SCH (09:31)
[2018-12-27] MEDS: ASCORBIC ACID 500 MG TAB PO SCH ×2 (09:31→17:48)
[2018-12-27] MEDS: FERROUS GLUCONATE 324 MG TAB PO SCH ×2 (09:32→17:48)
[2018-12-27] MEDS: TAPENTADOL HCL ER 50 MG TABCR PO SCH ×2 (09:35→22:19)
[2018-12-27] MEDS ORDERED: Nursing to Pharmacy Communication ONE (09:44)
[2018-12-27] MEDS: MAGNESIUM OXIDE 400 MG TAB PO SCH (10:18)
--- NOTE | 2018-12-27 11:26 | Anesthesiology Progress Note ---
Date of Service December 27, 2018 Anesthesia Post Procedure Vital Signs Vital Signs: Temp Pulse Pulse Resp BP Pulse Ox 12/27/18 09:21 72 116/72 12/27/18 08:13 37.0 C 61 18 108/59 L 99 12/27/18 03:07 37.1 C 73 16 137/73 97 12/26/18 23:14 37.0 C 67 16 125/60 97 12/26/18 20:25 36.7 C 60 16 126/75 98 12/26/18 15:01 36.4 C L 59 L 16 137/77 100 12/26/18 12:31 36.4 C L 55 L 18 130/69 100 12/26/18 11:28 36.5 C 53 L 18 117/77 99 Notes Mental Status: alert / awake / arousable and participated in evaluation Nausea / Vomiting: adequately controlled Pain: adequately controlled and improving with treatment Airway Patency, RR, SpO2: stable & adequate BP & HR: stable & adequate Hydration State: stable & adequate Neuraxial Anesthesia: was administered and sensory block resolved Anesthetic Complications: no major complications apparent and Pt Satisfied with anesthetic care
[2018-12-27] MEDS ORDERED: MAGNESIUM OXIDE 400 MG TAB PO SCH (21:00)
[2018-12-27] MEDS: CHOLECALCIFEROL 1,000 UNITS TAB PO SCH (22:19)
[2018-12-27] MEDS: BIMATOPROST 0.01% OP SOLN 2.5 ML BTL OPB SCH (22:19)
[2018-12-27] MEDS: SENNA 8.6 MG TAB PO SCH (22:20)
[2018-12-28] MEDS: ACETAMINOPHEN 500 MG TAB PO SCH (05:28)
[2018-12-28] MEDS: ONDANSETRON INJ 2 MG/ML 2 ML VIAL IV PRN (05:30)
[2018-12-28] MEDS: KETOROLAC TROMETHAMINE 15 MG/ML VIAL IV SCH (05:30)
[2018-12-28] MEDS: BRIMONIDINE TARTRATE (ALPHAGAN P) 5 ML DROPS OPR SCH (07:24)
[2018-12-28] MEDS: VALSARTAN 80 MG TAB PO SCH (07:26)
[2018-12-28] MEDS: PRAVASTATIN SOD 10 MG TAB PO SCH (07:26)
[2018-12-28] MEDS: ASPIRIN 81 MG ECTAB PO SCH (07:26)
[2018-12-28] MEDS: ASCORBIC ACID 500 MG TAB PO SCH (07:26)
[2018-12-28] MEDS: hydroCHLOROthiazide 25 MG TAB PO SCH (07:27)
[2018-12-28] MEDS: OMEGA-3 (PURIFIED FISH OIL) 1 GM CAP PO SCH (07:28)
[2018-12-28] MEDS: cycloSPORINE (RESTASIS) OP SCH (07:28)
[2018-12-28] MEDS: DOCUSATE SODIUM 100 MG CAP PO SCH (07:28)
[2018-12-28] MEDS: FERROUS GLUCONATE 324 MG TAB PO SCH (07:28)
[2018-12-28] MEDS: MULTIVITAMIN TAB PO SCH (07:28)
[2018-12-28] MEDS: TAPENTADOL HCL ER 50 MG TABCR PO SCH (07:32)
--- NOTE | 2018-12-28 08:42 | Progress Note ---
DATE: 12/28/2018 SUBJECTIVE: A 68-year-old white female postop day 2 from right knee replacement. She is doing surprisingly well from her standpoint. Pain is controlled. No chest pain or shortness of breath. Not feeling dizzy or lightheaded. OBJECTIVE: VITAL SIGNS: Temperature 37.1. Vital signs stable. PHYSICAL EXAMINATION: GENERAL: Shows a pleasant, middle-aged female. She is sitting up in bed and eating her breakfast and looks comfortable. EXTREMITIES: Examination of the right leg reveals the leg to be well aligned. Dressing is clean, dry and intact. She can dorsiflex and plantarflex her foot appropriately. She is neurologically intact. ASSESSMENT: A 68-year-old female postoperative day 2 from a left knee replacement, doing well. Pain is controlled. PLAN: 1. DVT prophylaxis including thigh-high TEDs, SCDs, and aspirin twice a day. 2. PT/OT. Weight bear as tolerated. Right total knee protocol. 3. Pain control, doing well with current pain regimen. 4. Disposition: Plan to discharge her home with some home health later today.
--- NOTE | 2018-12-31 07:27 | Discharge Summary ---
ADMITTING PHYSICIAN AND SURGEON: Tonio Dockery MD ADMITTING DIAGNOSIS: Right knee degenerative joint disease. SURGERY PERFORMED: Right total knee arthroplasty. SECONDARY DIAGNOSES: Mitral valve prolapse, lumbar spondylosis and sciatica. CONSULTS: None obtained. HISTORY AND PHYSICAL EXAMINATION: Well documented in the patient's chart. HOSPITAL COURSE: The patient was admitted on 12/26/2018, underwent total knee arthroplasty, tolerated the procedure well. There were no complications. She was transferred to the PACU postoperatively and later to the orthopedic floor for further care. She was given Ancef for antibiotic prophylaxis, MALGORZATA stockings, SCDs and aspirin for DVT prophylaxis. Hemoglobin, hematocrit and vital signs were monitored during her hospital stay and remained stable. She did not require any blood transfusion. There were no complications. By postoperative day 2, she was tolerating a regular diet, pain was controlled with oral pain medicine. She was participating in physical therapy. Postop day 2, she was discharged home, set up with home health services. She was given printed discharge instructions as well as new prescriptions for 4 extra-strength Tylenol, aspirin, hydromorphone, and Zofran. Continue her home medicines. Continue physical therapy. She is weightbearing as tolerated, MALGORZATA stockings. Follow up approximately 2 weeks postop or sooner if there are any problems or concerns.
== END 2018-12-28 10:10 | disposition home health service (06) | DRG 470 ==
LOC: ASU 05:04 → 3E 08:30